=== PATIENT | female | born 1950 | race Caucasian/White ===

== ENCOUNTER 2016-07-25 11:25 | Emergency (ER) | payer OTHER ==
--- NOTE | 2016-07-25 12:21 | ERNOTE ---
Dizziness ER Record Date of Service: 07/25/16 Presenting Symptoms: weakness, near-fainting Time Seen by Provider: 07/25/16 12:01 Source: patient Exam Limitations: no limitations Immunizations: IMMUNIZATION HX Immunizations Up to Date Yes Allergies/Adverse Reactions: Allergies Allergy/AdvReac Type Severity Reaction Status Date / Time No Known Allergies Allergy Verified 07/25/16 11:34 Home Medications: HOME MEDICATIONS Hydrochlorothiazide [Hydrodiuril] 25 mg PO DAILY 07/25/16 [Last Taken Unknown] Lisinopril [Prinivil] 20 mg PO DAILY 07/25/16 [Last Taken Unknown] amLODIPine BESYLATE [Norvasc] 5 mg PO DAILY 07/25/16 [Last Taken Unknown] - History of Present Illness Narrative: Patient states she was at work will contact very lightheaded like she was going to pass out denies the room spinning or vertigo type symptoms says it was more lightheadedness. Denies any headache did have a little bit of chest tightness but not pain. As she's in the ER her symptoms have doubly improved she sitting upright comfortable does not appear to be in distress. She noticed while in the ER blood pressure was quite high. She does have known history of hypertension. Denies any weakness on one side or the other side denies any nausea vomiting or diarrhea. No abdominal pain or fever Date (Duration): 07/25/16 Timing and Duration: sudden onset, better, gone now Severity: max: mild Severity: currently: gone Associated Symptoms: Present: weakness, light headedness. Absent: nausea, vomiting, headache, numbness, sweating, sense of confusion Sense of movement: Present: vague Decreased ability to stand/walk:: Present: off balance Modifying Factors - (Improves): Reports: nothing Modifying Factors - (Worsens): Reports: nothing Review of Systems - Review of Systems Constitutional: Absent: fever, chills Respiratory: Absent: shortness of breath, cough, orthopnea, wheezing Cardiology: Present: chest pain. Absent: palpitations, syncope Gastrointestinal/Abdominal: Absent: nausea, vomiting, diarrhea, constipation, abdominal pain Neurological: Present: dizziness/light-headedness. Absent: numbness, tingling All Other Systems: All systems neg except as marked - Patient's Past Medical History Patient History - Medical: No pertinent hx Patient History - Cardiac/Respiratory: Hypertension, Hyperlipidemia Patient History - Cancer: No Hx of Cancer Patient History - Surgical Procedures: Other - Social History Smoking Status: Never smoker Have you smoked in the past 12 months: No - Immunizations Immunizations Up to Date: Yes Physical Exam - Physical Exam General Appearance: Present: wd/wn, alert, no apparent distress Ears, Nose, Throat: Present: normal ENT inspection, hearing grossly normal, normal pharynx Neck: Present: normal inspection, nontender, supple Respiratory: Present: no respiratory distress, normal breath sounds, no accessory muscle use, chest nontender, lungs clear Cardiovascular/Chest: Present: regular rate, rhythm, no murmur, normal peripheral pulses Gastrointestinal/Abdominal: Present: normal bowel sounds, nontender, nondistended, soft, no organomegaly Back Exam: Present: normal inspection Neurological Exam: Present: alert, oriented, normal mood/affect, no motor/ sensory deficits, other - no neurological or focal deficits. Normal Motor power in the upper and lower extremities Skin Exam: Present: normal color, warm/dry Lymphatic Exam: Present: no adenopathy ED Progress - Results and Orders Patient's Lab Results:: I have reviewed the patient's lab results. - Vital Signs Patient's Vital Signs:: I have reviewed the patient's vital signs. Vital Signs: Vital Signs 07/25/16 07/25/16 07/25/16 11:31 11:38 11:48 Temperature 35.8 C L Pulse Rate 70 70 72 Respiratory 14 13 Rate Blood Pressure 158/95 142/126 O2 Sat by Pulse 98 94 Oximetry 07/25/16 11:54 Temperature Pulse Rate 69 Respiratory 13 Rate Blood Pressure 154/62 O2 Sat by Pulse 97 Oximetry - EKG EKG: NSR, nonspecific ST T wave changes EKG read: Reviewed by me EKG Comments: sinus rhythm no specific ST-T wave changes nothing acute heart rate 61 - Progress/Reassessment Chief Complaint: Dizziness Progress:: Improved Progress Note-Subjective: 07/25/16 13:47 She is feeling better symptoms have resolved desires to go home she'll follow up with family doctor in the next day or 2 of course returning back to the ER with any change or worsening symptoms. - Transfer of Care Expected Disposition: Discharge Departure Clinical Impression: Near syncope, Lightheadedness Hypertension Qualifiers: Hypertension type: essential hypertension Qualified Code(s): I10 - Essential ( primary) hypertension - Departure Disposition: Home Follow Up Needed Condition: Stable Instructions: Near-Syncope, [id number], Hypertension, [id number] Additional Instructions: All up with your doctor in the next 1-2 days returning back to the ER with any change or worsening symptoms She take her blood pressure at least once or twice a day Referrals: Paramjit Fragoso MD [Primary Care Provider] -
[2016-07-25 12:27] LABS: Hematocrit 40.2 % (37.0-47.0); Hemoglobin 13.5 gm/dL (12.5-16.0); Mean Cell Volume 86.3 fl (78-100); Mean Corpuscular Hgb Conc 33.6 g/dl (32-36); Mean Platelet Volume 8.8 fl (6.0-9.5); Neutrophil # 3.7 K/mm3 (1.3-6.0); Neutrophil % 54.1 % (42-75.0); Platelet Count 253 K/mm3 (150-450); Red Blood Count 4.66 M/mm3 (4.2-5.4); Red Cell Distribution Width 12.7 % (11.5-14.0); White Blood Count 6.9 K/mm3 (4.0-10.5)
[2016-07-25 12:42] LABS: ALT 29 U/L (19-67); AST 20 U/L (0-48); Alkaline Phosphatase * 75 U/L (50-170); Anion Gap 13.4 mmol/L (6.8-13.8); BUN/Creatinine Ratio 23.4 (9.0-21.6); Bilirubin, Total 0.4 mg/dL (0.0-1.1); Blood Urea Nitrogen 18 mg/dL (3-23); Calcium * 9.3 mg/dL (7.9-10.9); Carbon Dioxide 28.7 mmol/L (24-32.6); Chloride 97 mmol/L (97-106); Glucose * 101 mg/dL (70-110); Potassium 4.1 mmol/L (3.4-4.6); Sodium 135 mmol/L (132-142); Total Protein 7.8 gm/dL (6.2-8.2); Troponin I Less than 0.017 ng/ml (0.00-0.10)
[2016-07-25 13:17] VITALS: BP 153/69
== END 2016-07-25 13:59 | disposition home or self-care (01) ==
LOC: ER 11:25
DX: R55 Syncope and collapse (principal); R42 Dizziness and giddiness; I10 Essential (primary) hypertension